=== PATIENT | female | born 1990 | race Caucasian/White ===

== ENCOUNTER 2025-08-21 19:11 | Emergency (ER) | payer BC ==
[2025-08-21] MEDS ORDERED: Oseltamivir 75 MG CAP ONE (19:53)
== END 2025-08-21 20:15 | disposition home or self-care (01) ==
LOC: NAV ERS 19:11
DX: J10.1 Influenza due to other identified influenza virus with other respiratory manifestations (principal); Z79.899 Other long term (current) drug therapy
CPT/HCPCS: 99283